=== PATIENT | male | born 1940 | race Caucasian/White ===

== ENCOUNTER 2019-04-06 11:25 | Emergency (ER) | payer OTHER ==
[2019-04-06] MEDS ORDERED: DOXYCYCLINE 100 MG CAP PO ONE (13:16)
[2019-04-06] MEDS ORDERED: SMZ./TMP. 800/160 MG TABLET ONE (13:16)
--- NOTE | 2019-04-06 14:00 | RAD REPORT ---
EXAM DESCRIPTION: RAD - Foot Right 2 View - 04/06/2019 1:51 pm CLINICAL HISTORY: Right foot pain FINDINGS: A 6 millimeter curvilinear foreign body is present within the plantar soft tissues adjacen t to the base of the fifth metatarsal. No fracture or dislocation seen. Hallux valgus deformity Small lucency within the third metatarsal head with a sclerotic border. Additional lucency with scler otic border within the first metatarsal head likely benign
--- NOTE | 2019-04-06 15:25 | RAD REPORT ---
EXAM DESCRIPTION: US - Extremity Venous Uni Ltd - 04/06/2019 3:17 pm CLINICAL HISTORY: Pain;Swelling Leg swelling and edema. COMPARISON: <Comparisons> FINDINGS: Right lower extremity venous system was interrogated with Doppler technique. Normal flow, compressibility and augmentation was noted. There is no DVT present. IMPRESSION: No evidence of right lower extremity deep venous thrombosis.
--- NOTE | 2019-04-06 15:32 | EDPHYS ---
Physician Documentation [facility] Name: Raul Jeffery Jr Age: 78 yrs Sex: Male : 1940 Arrival Date: 04/06/2019 Time: 11:29 Bed 19 Private MD: ED Physician Abhi Galvez HPI: 04/06 14:35 This 78 yrs old Male presents to ER via Ambulatory with complaints of Foot rn Pain, Swelling Of Foot. 14:35 The patient presents with pain, that is acute. The complaints affect the right foot. rn Onset: The symptoms/episode began/occurred 2 day(s) ago. Associated signs and symptoms: Pertinent positives: swelling, Pertinent negatives: fever. Severity of symptoms: At their worst the symptoms were mild, in the emergency department the symptoms are unchanged. The patient has not experienced similar symptoms in the past. Reports right foot swelling and pain, began 2 days ago, no fever, no known trauma. NO hx of blood clots. . Historical: - Allergies: 11:56 No Known Allergies; aa5 - PMHx: 11:56 Hypertension; Borderline Diabetes; Enlarged prostate; Hyperlipidemia; aa5 - PSHx: 11:56 None; aa5 - Immunization history:: Flu vaccine is up to date. - Social history:: Smoking status: Patient/guardian denies using tobacco. - Ebola Screening: : No symptoms or risks identified at this time. - Family history:: not pertinent. - Hospitalizations: : No recent hospitalization is reported. ROS: 14:35 Constitutional: Negative for fever, chills, and weight loss, Neck: Negative for injury, rn pain, and swelling, Cardiovascular: Negative for chest pain, palpitations, and edema, Respiratory: Negative for shortness of breath, cough, wheezing, and pleuritic chest pain, Abdomen/GI: Negative for abdominal pain, nausea, vomiting, diarrhea, and constipation, Back: Negative for injury and pain, MS/Extremity: + right foot pain and redness Neuro: Negative for headache, weakness, numbness, tingling, and seizure. Exam: 14:35 Constitutional: This is a well developed, well nourished patient who is awake, alert, rn and in no acute distress. Head/Face: Normocephalic, atraumatic. ENT: MMM Cardiovascular: Regular rate and rhythm. No pulse deficits. Respiratory: Lungs have equal breath sounds bilaterally, clear to auscultation. No increased work of breathing, no retractions or nasal flaring. Abdomen/GI: soft, non-tender MS/ Extremity: Pulses equal, no cyanosis. Neurovascular intact. Full, normal range of motion. + right foot with mild swelling and erythema, no signs of trauma, + warmth, no fluctuance Neuro: Awake and alert, GCS 15, oriented to person, place, time, and situation. Cranial nerves II-XII grossly intact. Motor strength 5/5 in all extremities. Sensory grossly intact. Cerebellar exam normal. Vital Signs: 11:56 BP 109 / 76; Pulse 75; Resp 18 S; Temp 98.4(O); Pulse Ox 96% on R/A; Weight 88 kg (R); aa5 Height 6 ft. 1 in. (185.42 cm) (R); 14:16 BP 120 / 82; Pulse 76; Resp 15; Temp 98.0(TE); Pulse Ox 99% on R/A; mh5 11:56 Body Mass Index 25.59 (88.00 kg, 185.42 cm) aa5 MDM: 13:01 Patient medically screened. rn 15:30 Differential diagnosis: fracture, sprain, cellulitis. Data reviewed: vital signs, rn nurses notes, lab test result(s), radiologic studies, plain films, ultrasound, and as a result, I will discharge patient. Counseling: I had a detailed discussion with the patient and/or guardian regarding: the historical points, exam findings, and any diagnostic results supporting the discharge/admit diagnosis, lab results, radiology results, the need for outpatient follow up, to return to the emergency department if symptoms worsen or persist or if there are any questions or concerns that arise at home. Special discussion: I discussed with the patient/guardian in detail that at this point there is no indication for admission to the hospital. It is understood, however, that if the symptoms persist or worsen the patient needs to return immediately for re-evaluation. ED course: U/S negative for DVT. NO fracture/acute trauma on xray foot. Will dc home with abx and return precautions.. 04/06 13:13 Order name: Glucose, Ancillary Testing; Complete Time: 13:42 EDMS 04/06 13:09 Order name: Extremity Venous Uni Ltd US rn 04/06 13:08 Order name: FSBS; Complete Time: 13:12 sg 04/06 13:09 Order name: XRAY Foot RIGHT 2 View rn 04/06 13:09 Order name: Glucose Level; Complete Time: 13:12 rn Administered Medications: 13:18 Drug: Bactrim (160 mg-800 mg (DS) 1 tablet Route: PO; sg 13:27 Follow up: Response: No adverse reaction sg 13:18 Drug: Doxycycline 100 mg Route: PO; sg 13:27 Follow up: Response: No adverse reaction sg Disposition: 04/06/19 15:31 Discharged to Home. Impression: Cellulitis of right lower limb. - Condition is Stable. - Discharge Instructions: Cellulitis, Adult. - Prescriptions for Doxycycline Hyclate 100 mg Oral Tablet - take 1 tablet by ORAL route every 12 hours; 20 tablet. Bactrim DS 800- 160 mg Oral Tablet - take 1 tablet by ORAL route every 12 hours for 10 days; 20 tablet. - Medication Reconciliation Form, Thank You Letter, Antibiotic Education, Prescription Opioid Use form. - Follow up: Private Physician; When: As needed; Reason: Recheck today's complaints, Re-evaluation by your physician. - Problem is new. - Symptoms have improved. Signatures: Dispatcher [employer] EDMS Waqar Rangel RN RN sg Abhi Galvez MD MD rn Calderon, Audri, RN RN aa5 Corrections: (The following items were deleted from the chart) 15:37 15:31 04/06/2019 15:31 Discharged to Home. Impression: Cellulitis of right lower limb. aa5 Condition is Stable. Forms are Medication Reconciliation Form, Thank You Letter, Antibiotic Education, Prescription Opioid Use. Follow up: Private Physician; When: As needed; Reason: Recheck today's complaints, Re-evaluation by your physician. Problem is new. Symptoms have improved. rn
--- NOTE | 2019-04-06 15:32 | ER ---
Nurse's Notes [facility] Name: Raul Jeffery Jr Age: 78 yrs Sex: Male : 1940 Arrival Date: 04/06/2019 Time: 11:29 Bed 19 Private MD: Diagnosis: Cellulitis of right lower limb Presentation: 04/06 11:53 Presenting complaint: Patient states: right foot swelling and redness that began aa5 Tuesday. Pt denies known injury, denies pain to right leg, only c/o stinging pain to top of right foot. Pt states "urgent care sent me here". Transition of care: patient was not received from another setting of care. Onset of symptoms was March 2019. Risk Assessment: Do you want to hurt yourself or someone else? Patient reports no desire to harm self or others. Initial Sepsis Screen: Does the patient meet any 2 criteria? No. Patient's initial sepsis screen is negative. Does the patient have a suspected source of infection? No. Patient's initial sepsis screen is negative. Care prior to arrival: None. 11:53 Acuity: WISAM 3 aa5 11:53 Method Of Arrival: Ambulatory aa5 Historical: - Allergies: 11:56 No Known Allergies; aa5 - PMHx: 11:56 Hypertension; Borderline Diabetes; Enlarged prostate; Hyperlipidemia; aa5 - PSHx: 11:56 None; aa5 - Immunization history:: Flu vaccine is up to date. - Social history:: Smoking status: Patient/guardian denies using tobacco. - Ebola Screening: : No symptoms or risks identified at this time. - Family history:: not pertinent. - Hospitalizations: : No recent hospitalization is reported. Screenin:10 Abuse screen: Denies threats or abuse. Denies injuries from another. Nutritional sg screening: No deficits noted. Tuberculosis screening: No symptoms or risk factors identified. Never had TB. Fall Risk None identified. Assessment: 13:10 General: Appears in no apparent distress. well groomed, well developed, well nourished, sg Behavior is calm, cooperative, appropriate for age. Pain: Complains of pain in anterior aspect of right ankle and dorsum of right foot Quality of pain is described as throbbing. Neuro: Level of Consciousness is awake, alert, obeys commands, Oriented to person, place, time, Social Worker Delinquency Prevention are equal bilaterally Moves all extremities. Speech is normal, Facial symmetry appears normal. Cardiovascular: Capillary refill is brisk in bilateral fingers Patient's skin is warm and dry. Chest pain is denied. Respiratory: Airway is patent Respiratory effort is even, unlabored, Respiratory pattern is regular, symmetrical. GI: Abdomen is round non-distended, Reports normal bowel habits, tolerance of fluids, tolerance of food. : No signs and/or symptoms were reported regarding the genitourinary system. EENT: No signs and/or symptoms were reported regarding the EENT system. Derm: Skin is pink, warm \\T\\ dry. Musculoskeletal: Circulation, motion, and sensation intact. Range of motion: intact in all extremities, Swelling present in right foot. 15:26 Reassessment: Patient appears in no apparent distress at this time. Patient and/or sg family updated on plan of care and expected duration. Pain level reassessed. Patient is alert, oriented x 3, equal unlabored respirations, skin warm/dry/pink. awaiting radiology results at this time, pt reports he has a football game in [place] he needs to attend and would like to be discharged to home soon to make it to the game. Vital Signs: 11:56 BP 109 / 76; Pulse 75; Resp 18 S; Temp 98.4(O); Pulse Ox 96% on R/A; Weight 88 kg (R); aa5 Height 6 ft. 1 in. (185.42 cm) (R); 14:16 BP 120 / 82; Pulse 76; Resp 15; Temp 98.0(TE); Pulse Ox 99% on R/A; mh5 11:56 Body Mass Index 25.59 (88.00 kg, 185.42 cm) aa5 ED Course: 11:29 Patient arrived in ED. rg4 11:53 Arm band placed on. aa5 11:54 Triage completed. aa5 13:01 Abhi Galvez MD is Attending Physician. rn 13:08 Waqar Rangel, SHANNAN is Primary Nurse. sg 13:10 No provider procedures requiring assistance completed. sg 13:52 XRAY Foot RIGHT 2 View In Process Unspecified. EDMS 14:16 Patient has correct armband on for positive identification. Bed in low position. Call 5 light in reach. Pulse ox on. NIBP on. 15:19 Extremity Venous Uni Ltd US In Process Unspecified. EDMS Administered Medications: 13:18 Drug: Bactrim (160 mg-800 mg (DS) 1 tablet Route: PO; 13:27 Follow up: Response: No adverse reaction sg 13:18 Drug: Doxycycline 100 mg Route: PO; sg 13:27 Follow up: Response: No adverse reaction Outcome: 15:31 Discharge ordered by . rn 15:37 Patient left the ED. aa5 Signatures: Dispatcher [employer] EDMS Waqar Rangel RN RN Abhi Miller MD MD rn Calderon, Audri, RN RN [facility] Mitali Barboza Claire Avery [facility]
[2019-04-06 15:56] VITALS: BP 120/82; TEMP 98; O2SAT 99
== END 2019-04-06 15:37 | disposition home or self-care (01) ==
LOC: ER 11:25
DX: L03.115 Cellulitis of right lower limb (principal); I10 Essential (primary) hypertension
CPT/HCPCS: 82962; 93971; 99283